=== PATIENT | female | born 2000 | race Caucasian/White ===

== ENCOUNTER 2022-04-06 00:14 | Emergency (ER) | payer OTHER ==
[~2022-04-06] VITALS: Ht 157.5 cm; Wt 59.1 kg
[2022-04-06 00:17] VITALS: TEMP 98
[2022-04-06 01:20] VITALS: BP 122/78; PULSE 76
[2022-04-06] MEDS ORDERED: CRUTCHES MC (03:17)
== END 2022-04-06 01:20 | disposition home or self-care (01) ==
LOC: COL.ER 00:14
DX: S82.141A Displaced bicondylar fracture of right tibia, initial encounter for closed fracture (principal); S93.401A Sprain of unspecified ligament of right ankle, initial encounter; S80.01XA Contusion of right knee, initial encounter; Z28.310 Unvaccinated for COVID-19; W17.2XXA Fall into hole, initial encounter; Y93.02 Activity, running
CPT/HCPCS: J1885; L1830; L1846